=== PATIENT | female | born 1950 | race Asian ===

== ENCOUNTER 2023-12-24 16:29 | Emergency (ER) | payer OTHER ==
[2023-12-24 16:40] VITALS: BP 112/71; PULSE 85; RESP 18; TEMP 97.7; BMI 24.4
[2023-12-24] MEDS ORDERED: KETOROLAC TROMETHAMINE 15 MG/ML VIAL ONE (17:03)
[2023-12-24 17:38] LABS: BASO % 0.3 % (0-2.0); EOS % 0.8 % (0-4.5); HEMATOCRIT 41.9 % (32.4-45.2); HEMOGLOBIN 14.2 GM/dL (10.7-15.3); LYMPH % 22.8 % (8-40); MCH 29.9 pg (25.7-33.7); MCHC 33.8 g/dl (32.0-36.0); MEAN CELL VOLUME 88.4 fl (80-96); MEAN PLT VOLUME 6.8 fl (7.5-11.1); NEUT % 71.1 % (42.8-82.8); PLATELET COUNT 436 10^3/uL (134-434); RBC 4.74 M/mm3 (3.60-5.2); RDW 13.8 % (11.6-15.6)
[2023-12-24] MEDS: KETOROLAC TROMETHAMINE 15 MG/ML VIAL IVPUSH ONE (17:46)
[2023-12-24 17:47] LABS: URINE APPEARANCE CLEAR; URINE BILIRUBIN NEGATIVE (NEGATIVE); URINE COLOR YELLOW; URINE GLUCOSE (UA) NEGATIVE (NEGATIVE); URINE KETONE NEGATIVE (NEGATIVE); URINE LEUK ESTERASE NEGATIVE (NEGATIVE); URINE NITRITE NEGATIVE (NEGATIVE); URINE PROTEIN NEGATIVE (NEGATIVE); URINE UROBILINOGEN 0.2 mg/dL (0.2-1.0)
[2023-12-24] MEDS: SODIUM CHLORIDE 1,000 ML IV STA (17:47)
[2023-12-24] MEDS ORDERED: ACETAMINOPHEN INJECTION 100 ML ONE (18:21)
[2023-12-24] MEDS ORDERED: LIDOCAINE 4% PATCH TP ONE (18:21)
[2023-12-24] MEDS: ACETAMINOPHEN 1000 MG/100 ML BAG IVPB ONE (18:32)
[2023-12-24] MEDS: LIDOCAINE 5% TOPICAL PATCH TP ONE (18:32)
[2023-12-24 18:41] LABS: CALCIUM 9.9 mg/dL (8.5-10.1)
[2023-12-24 18:42] LABS: BLOOD UREA NITROGEN 18.9 mg/dL (7-18)
[2023-12-24 18:46] LABS: BILIRUBIN,TOTAL 0.5 mg/dL (0.2-1)
[2023-12-24 18:47] LABS: TOT PROT 7.4 g/dl (6.4-8.2)
[2023-12-24 20:05] LABS: CREATININE 0.9 mg/dL (0.55-1.3)
[2023-12-25] MEDS ORDERED: LIDOCAINE PATCH REMOVAL MC SCH (06:00)
== END 2023-12-24 20:16 | disposition home or self-care (01) ==
LOC: JER 16:29
PROC: 3E033NZ Introduction of Analgesics, Hypnotics, Sedatives into Peripheral Vein, Percutaneous Approach (ICD-10-PCS; principal; 2023-12-24)
PROC: 3E0333Z Introduction of Anti-inflammatory into Peripheral Vein, Percutaneous Approach (ICD-10-PCS; 2023-12-24)
DX: R10.9 Unspecified abdominal pain (principal)
CPT/HCPCS: 36415; 71101-TC-RT-FY; 74176-TC; 80053; 81003; 85025; 87086; 99285-25; J0131